=== PATIENT | male | born 1960 | race Caucasian/White ===

== ENCOUNTER 2017-03-04 22:47 | Inpatient (IN) | payer BC ==
--- NOTE | ~2017-03-04 | HP ---
History And Physical [address] [facility] [place]. [address] NAME: NAIDA BELLAMY : 64 STATUS : ADM Landen PAT#: [id number] AGE: 56 ADM/REG DATE : 03/04/17 MR#: [id number] REPORT SERV DATE: 03/05/17 DICTATED BY: LUCRECIA MOON DATE: 03/05/17 REPORT STATUS : Draft TRANSCRIBED BY: MODL DATE: 03/05/17 DATE OF ADMISSION: 03/04/2017 POINT OF ENTRY: Transferred from [facility]. CHIEF COMPLAINT: Chest pain. HISTORY OF PRESENT ILLNESS: Mr. Bellamy is a 56-year-old gentleman with a history of morbid obesity status post gastric bypass surgery as well as obstructive sleep apnea, on CPAP therapy, who presented to [facility] this evening with a report of acute onset of substernal chest pain described as pressure with associated diaphoresis. The patient states he was in his usual state of health until about 6:00 p.m. when he was at rest watching the match, subsequently he developed the acute onset of substernal chest pain described as pressure. He states it may have radiated to his left neck; however, he does admit that he was feeling very anxious with the onset of the chest pain. The patient does describe profuse diaphoresis at that time. He denied any nausea, shortness of breath, palpitations, or syncope. He initially rated this scale about 3 to 4/10 in severity. EMS was activated and he presented to the emergency department. Initial evaluation in the emergency department for EKG was nonischemic. Troponin was 0.04, of note, the cutoff value for [facility] is 0.044. He was given an inch of nitroglycerin paste, full-strength aspirin. After the inch of nitroglycerin paste the patient still had some chest pain, therefore he was given 2 mg of IV morphine with almost complete resolution of the chest pain. The patient was subsequently transferred to for higher level of care and per the patient's request. The patient denies any recent fevers, night sweats, chills, palpitations, cough, sputum production, shortness of breath, abdominal pain, nausea, vomiting, diarrhea, constipation, dysuria, lower extremity edema, melena, hematochezia, hemoptysis, or hematemesis. 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 He has not had a stress test or arteriogram in the past. He does exercise on an irregular basis, and actually exercised this morning. Comprehensive review of systems otherwise negative unless listed in history of present illness. PREVIOUS MEDICAL HISTORY: 1. Morbid obesity status post gastric bypass surgery. 2. Depression. 3. Obstructive sleep apnea, on CPAP therapy. 4. Previous history of hypertension and hyperlipidemia, no longer on treatment status post bypass. 5. Remote history of ischemic colitis. SURGICAL HISTORY: 1. Gastric bypass surgery. 2. Appendectomy. 3. Cholecystectomy. History And Physical [address] [address] NAME: NAIDA BELLAMY : 64 STATUS : ADM Landen PAT#: [id number] AGE: 56 ADM/REG DATE : 03/04/17 MR#: [id number] REPORT SERV DATE: 03/05/17 DICTATED BY: LUCRECIA MOON DATE: 03/05/17 REPORT STATUS : Draft TRANSCRIBED BY: ELIZABETH DATE: 03/05/17 4. Lipoma excision. ALLERGIES: TO NSAIDS. HOME MEDICATIONS: Effexor 75 mg daily. SOCIAL HISTORY: Denies any tobacco or illicits. He does state that he has drinking problem and has in the past three to four years ago where he drinks approximately four to eight glasses of wine nightly. Denies any history of alcohol withdrawal seizures, hallucinations, or delirium tremens. His last alcoholic drink was a few days ago. He is now currently ruled to an outpatient treatment program. FAMILY MEDICAL HISTORY: Mother with breast cancer and hypertension. Father is otherwise healthy. Siblings otherwise healthy. No significant family history of premature coronary artery disease notable. LABS AND IMAGING: All obtained from transfer records from [facility]: 1. White count 10.0, hemoglobin 13.9, hematocrit is 42.6, and platelet count is 259. INR 1.0. 2. Sodium is 145, potassium 4.6, chloride 101, carbon dioxide 30, BUN 25, creatinine 1.0, glucose is 140, calcium 9.0, protein 7.0, albumin is 3.8, bilirubin is 0.2, ALT is 44, AST 27, and alkaline phosphatase is 91. 3. Troponin is 0.4, on recheck here at [facility] his troponin now is 0.50 with a CPK of 124, CK MB of 2.3. 4. EKG per my review, obtained here at [facility] shows sinus bradycardia with heart rates in the high 50s with some LVH, but otherwise no evidence of any acute ischemia or infarction. 5. Chest x-ray per report from [facility] shows no acute cardiopulmonary abnormality. PHYSICAL EXAMINATION: VITAL SIGNS: Temperature is 98.0 degrees Fahrenheit, pulse is 60, respirations 19, saturating 99% on 2 L by nasal cannula, and blood pressure 113/58. GENERAL: The patient is awake and alert, in no acute distress. Resting comfortably in bed. He is a well-developed, well-nourished, male resting comfortably in bed. HEENT: Atraumatic and normocephalic. Moist mucous membranes. Pupils are equal, round, reactive to light and accommodation. Extraocular eye movements intact. No scleral icterus. NECK: No jugular venous distention. No carotid bruits. CARDIAC: Regular rate and rhythm. No murmurs, rubs, or gallops. Normal S1, S2. LUNGS: Clear to auscultation bilaterally. No wheezes, rhonchi, or crackles. ABDOMEN: Obese, soft, nontender, and nondistended. Good bowel sounds. No rebound, guarding, or rigidity. EXTREMITIES: Warm and well perfused. No cyanosis, clubbing, or edema. SKIN: Warm and dry. PSYCH: Affect appropriate. NEURO: Alert and oriented x3. Cranial nerves 2 through 12 grossly intact. Speech is normal. Gait not assessed. History And Physical [address] [address] NAME: NAIDA BELLAMY : 64 STATUS : ADM Landen PAT#: [id number] AGE: 56 ADM/REG DATE : 03/04/17 MR#: [id number] REPORT SERV DATE: 03/05/17 DICTATED BY: LUCRECIA MOON DATE: 03/05/17 REPORT STATUS : Draft TRANSCRIBED BY: ELIZABETH DATE: 03/05/17 MUSCULOSKELETAL: I am unable to reproduce any of the chest pain with palpation of the anterior or precordial chest. ASSESSMENT AND PLAN: Mr. Bellamy is a 56-year-old gentleman, who presents with the acute onset of substernal chest pain with diaphoresis and possible radiation that lasted approximately three to four hours, and now found to have an elevated troponin value concerning for non-ST elevation myocardial infarction. PROBLEM LIST: 1. Non-ST elevation myocardial infarction. 2. Alcohol abuse/alcohol dependence. 3. Morbid obesity status post gastric bypass surgery. 4. Obstructive sleep apnea, on CPAP therapy. PLAN: 1. Chest pain with non-ST elevation myocardial infarction. The patient admittedly does have very few cardiac risk factors at this time as he is a nonsmoker, has no identifiable family history. He does not have any evidence of diabetes or current treatment for hypertension or hyperlipidemia. But the patient does have a fairly classic story for possible ischemic chest pain as well as now a slowly rising troponin value. We will continue to treat him with full-strength aspirin. We will add on full- strength statin as well as continue the treatment for full-strength Lovenox of which he received the first dose at [facility]. Given his elevated troponin value we will consult Cardiology for assistance, keep the patient nothing by mouth pending possible stress test versus cardiac catheterization. Also check the hemoglobin A1c as well as fasting lipid panel. 2. Alcohol abuse. The patient admits to significant alcohol intake over the last three to four years, has not had any intake over the past few days. He currently has no evidence at this time of alcohol withdrawal, but we will place him on alcohol withdrawal protocol for continued monitoring. 3. DVT prophylaxis. Therapeutic Lovenox anticoagulation. CODE STATUS: The patient wished to be full code. JCB/MODL Lucrecia Moon MD / [id number] CC: Lito Swartz Jr, MD Rory Justo, MD
--- NOTE | ~2017-03-04 | DS ---
Discharge Summary [facility] [address] [facility] [place]. [address] NAME: NAIDA AKERS : 64 STATUS : DIS Landen PAT#: [id number] AGE: 56 ADM/REG DATE : 03/04/17 MR#: [id number] REPORT SERV DATE: 03/07/17 DICTATED BY: JR. SWARTZ WILLIAM JOHN DATE: 03/06/17 REPORT STATUS : Draft TRANSCRIBED BY: ELIZABETH DATE: 03/06/17 ADMISSION DATE: 03/04/2017 DISCHARGE DATE: 03/06/2017 DISCHARGE DIAGNOSES: Include: 1. [id number] myocardial infarction without culprit lesion identified on cardiac catheterization. 2. Alcohol abuse. 3. Morbid obesity, status post gastric bypass with body mass index of 32.1. 4. Obstructive sleep apnea, on CPAP. OPERATIONS/PROCEDURES AND TREATMENTS: Include cardiac catheterization done 03/06/2017, which showed no flow-limiting coronary artery disease with normal left ventricular end-diastolic filling pressure. Normal left ventricular systolic function. No culprit for chest pain or enzyme elevation. There is a right-sided dominance to the left main having the short vessel normal. Left anterior descending had a large caliber vessel 30-40% mid vessel stenosis. Large caliber trifurcation first diagonal vessel. Small inferior branch with 50% ostial stenosis. Left circumflex was large caliber dominant vessel with OM1 with diminutive OM2 with large caliber multibranching vessel which was normal circumflex traveled distally and posteriorly deforming medium caliber posterolateral branches and medium caliber long posterior descending artery which was normal. Right coronary is medium caliber with nondominant vessel supplying two ventricular branches and normal ramus with small caliber long vessel and normal. DISCHARGE MEDICATIONS: Include: 1. Venlafaxine 75 mg orally daily. 2. Lipitor 20 mg orally daily. 3. Metoprolol 12.5 mg orally twice a day. HOSPITAL COURSE: The patient is a 56-year-old male with a history of obesity status post gastric bypass in 2008, who developed abrupt substernal chest pressure with diaphoresis and shortness of breath one day prior to presentation. Symptoms lasted for 20 to 30 minutes, resolved by EMS with nitroglycerin. The patient initially went to [facility] where EKG shows sinus rhythm, LVH and old lateral infarct without acute ST change. Initial troponin was borderline at 0.04. He was transferred to [facility] for further care. He had no chest pain. Troponin trended up to 0.5. EKG remained unchanged. For exact details, please see the dictated history and physical. The patient was admitted to the Clinical Decision Unit. He was placed on heparin drip and was seen in consultation by Dr. Hang Clark, recommending a cardiac catheterization. The patient had a cardiac catheterization which showed noncritical coronary artery disease. He had a fasting lipid profile which showed normal LDL and HDL. He is discharged home on low- dose metoprolol and Lipitor. The patient will follow up with his primary care provider as well as Dr. Clark. DIET: Regular. Discharge Summary [address] [address] NAME: NAIDA AKERS : 64 STATUS : DIS Landen PAT#: [id number] AGE: 56 ADM/REG DATE : 03/04/17 MR#: [id number] REPORT SERV DATE: 03/07/17 DICTATED BY: JR. SWARTZ WILLIAM JOHN DATE: 03/06/17 REPORT STATUS : Draft TRANSCRIBED BY: ELIZABETH DATE: 03/06/17 ACTIVITY: As tolerated. This discharge took less than 30 minutes for patient encounter, coordination care and documentation. WNARENDRA/ELIZABETH Lito Swartz Jr, MD / [id number] CC: Lito Swartz Jr, MD
--- NOTE | ~2017-03-04 | CN ---
Consultation Report [facility] [address] [place]. [address] NAME: NAIDA AKERS : 64 STATUS : ADM Landen PAT#: [id number] AGE: 56 ADM/REG DATE : 03/04/17 MR#: [id number] REPORT SERV DATE: 03/05/17 DICTATED BY: HANG EMERSON DATE: 03/05/17 REPORT STATUS : Draft TRANSCRIBED BY: MODL DATE: 03/05/17 CARDIOLOGY CONSULTATION DATE OF CONSULTATION: 03/05/2017 REASON FOR CONSULTATION: Non-STEMI. 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 Symptoms lasted for 20 to 30 minutes before being resolved by EMS with nitroglycerin. He initially went to [facility] where his EKG showed sinus rhythm, LVH, and an old lateral infarct with no acute ST changes. Initial troponin was borderline at 0.04. He was transferred here for further care. He has had no further chest pain symptoms. Troponin has trended up to 0.5, and EKG remains unchanged. He is now resting comfortably. He has no preceding symptoms of exertional angina. He denies palpitations or syncope. He has no orthopnea/PND with the use of CPAP for obstructive sleep apnea. He has no edema. REVIEW OF SYSTEMS: Pertinent positives and negatives are as outlined above, all else negative. PAST MEDICAL HISTORY: 1. History of hypertension. 2. History of hyperlipidemia. 3. Obesity, status post gastric bypass surgery in 2008. 4. Obstructive sleep apnea, on CPAP. 5. Alcohol abuse. CURRENT MEDICATIONS: Effexor 75 mg daily. ALLERGIES: INCLUDE NO KNOWN DRUG ALLERGIES, LONG-TERM NONSTEROIDALS CONTRAINDICATED DUE TO HISTORY OF GASTRIC BYPASS SURGERY. 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 He does not use tobacco products. He consumes excess alcohol with four to eight drinks per day and is working on a cessation program. He does not use illegal drugs. FAMILY HISTORY: No significant family history of premature CAD, cardiomyopathy, or sudden . PHYSICAL EXAMINATION: VITAL SIGNS: Temperature is afebrile, pulse is 60, respirations 16, and blood pressure is 113/58. MENTAL STATUS: Awake, alert, and oriented x3. Consultation Report [place] [id number] [place]. [address] NAME: NAIDA AKERS : 64 STATUS : ADM Landen PAT#: [id number] AGE: 56 ADM/REG DATE : 03/04/17 MR#: [id number] REPORT SERV DATE: 03/05/17 DICTATED BY: HANG EMERSON DATE: 03/05/17 REPORT STATUS : Draft TRANSCRIBED BY: MODAna DATE: 03/05/17 PSYCH: Euthymic, normal affect. GENERAL: Well appearing and in no distress. HEENT: Sclerae anicteric, mucous membranes moist and without lesions. NECK: No jugular venous distention. No hepatojugular reflux, carotid upstrokes 2+ and symmetric, there are no carotid or subclavian bruit. LUNGS: Clear to auscultation without wheezes, crackles, or rales. CARDIOVASCULAR: Regular with normal S1 and S2, no murmurs, no S3 or S4, no parasternal lift, PMI is nondisplaced and nonsustained. ABDOMEN: Soft and nontender. Bowel sounds positive and normoactive. No hepatomegaly, no masses, no abdominal bruit. PULSES: Radial and dorsalis pedis pulses 2+ and symmetric. EXTREMITIES: Warm and without edema. SKIN: No clubbing or cyanosis, no rashes or lesions. ACCESSORY DATA: ECG shows sinus rhythm with LVH. Anterolateral Q-waves suggestive of an old lateral infarct. No acute ST changes. Troponin 0.05. Creatinine 0.9. Otherwise, normal electrolytes. Normal CBC. IMPRESSION: 1. [id number] myocardial infarction. 2. Abnormal ECG. 3. Hypertension. 4. Hyperlipidemia. 5. Obesity, status post gastric bypass surgery. 6. Obstructive sleep apnea. 7. Alcohol use/abuse. PLAN: Recommend statin and aspirin therapy, questionable retirement aspirin due to history of gastric bypass surgery. He has already see Lovenox which we will hold this morning in anticipation acute n.p.o. for cardiac catheterization and possible PCI today. Prescribed low-dose metoprolol 12.5 mg b.i.d. Further plan pending cardiac catheterization results. CONSENT: Risks and benefits of cardiac catheterization were discussed Mr. Lopez today. Risks including bleeding, infection, vascular access, trauma, allergic reaction to contrast dye, renal insufficiency, and a less than 1% chance of major complications such as heart attack and stroke were all covered. After this, informed consent was obtained and he agreed to proceed. LI/ELIZABETH Hang Emerson M.D. Consultation Report [address] [address] NAME: NAIDA AKERS : 64 STATUS : ADM Landen PAT#: [id number] AGE: 56 ADM/REG DATE : 03/04/17 MR#: [id number] REPORT SERV DATE: 03/05/17 DICTATED BY: HANG EMERSON DATE: 03/05/17 REPORT STATUS : Draft TRANSCRIBED BY: ELIZABETH DATE: 03/05/17 / [id number] CC: Lito Swartz Jr, MD
[~2017-03-04 22:47] MED LIST: EFFEX75 PO; L20 PO; ZESTRIL10 MG PO
[2017-03-05 00:17] LABS: CPK 124 U/L (0-200)
[2017-03-05 00:18] LABS: CK-MB 2.3 NG/ML
[2017-03-05 04:34] LABS: BASOPHILS 0.3 %; BASOPHILS ABSOLUTE 0.02 10/3/uL (0.0-0.16); EOSINOPHILS 2.6 %; EOSINOPHILS ABSOLUTE 0.17 10/3/uL (0.0-0.53); HEMOGLOBIN 12.8 g/dL (13.6-17.8); IMMATURE GRANULOCYTES 0.3 %; IMMATURE GRANULOCYTES ABSOLUTE 0.02 10/3/uL (0.0-0.11); LYMPHOCYTES 30.2 %; LYMPHOCYTES ABSOLUTE 1.96 10/3/uL (0.67-4.30); MEAN CORPUS HGB CONC 33.7 g/dL (32.0-36.0); MEAN CORPUSCULAR HEMOGLOB 31.4 pg (26.0-34.0); MEAN CORPUSCULAR VOLUME 93.1 fL (80-100); MEAN PLATELET VOLUME 10.3 fL (9.2-13.0); MONOCYTES 9.2 %; NEUTROPHILS 57.4 %; NEUTROPHILS ABSOLUTE 3.73 10/3/uL (2.02-8.40); PLATELET COUNT 229 10/3/uL (150-400); RBC DISTRIBUTION WIDTH 13.7 % (12.0-16.0); RED CELL COUNT 4.08 10/6/uL (4.7-6.1); WHITE BLOOD CELLS 6.5 10/3/uL (4.5-10.5)
[2017-03-05 04:42] LABS: MANUAL DIFF NO %
[2017-03-05 04:48] LABS: CHLORIDE, SERUM 108 MMOL/L (96-112); CHOL/HDL RATIO(NOT ORDER) 2.1 (0-5); CHOLESTEROL 133 MG/DL (< 200); CO2 (CARBON DIOXIDE) 28 MMOL/L (24-34); CPK 114 U/L (0-200); CREATININE 0.74 MG/DL (0.70-1.30); GFR AFRICAN AMERICAN 121 ML/MIN (>=60); GFR NON AFRICAN AMERICAN 105 ML/MIN (>=60); GLUCOSE, SERUM 87 MG/DL (60-99); HDL CHOLESTEROL 63 MG/DL (> 39); LDL CHOLESTEROL 54 MG/DL (< 130); NON-HDL CHOLESTEROL 70 MG/DL (< 160); POTASSIUM, SERUM 3.6 MMOL/L (3.5-5.3); SODIUM, SERUM 146 MMOL/L (135-148); TRIGLYCERIDE 80 MG/DL (< 150)
[2017-03-05 04:50] LABS: BUN (BLOOD UREA NITROGEN) 22 MG/DL (6-23); CALCIUM, SERUM 7.8 MG/DL (8.5-10.4); CK-MB 2.4 NG/ML; TROPONIN I 0.38 NG/ML (<0.05)
[2017-03-05 07:15] LABS: TROPONIN I 0.35 NG/ML (<0.05)
[2017-03-05 10:24] LABS: BASOPHILS 0.3 %; BASOPHILS ABSOLUTE 0.02 10/3/uL (0.0-0.16); EOSINOPHILS 2.3 %; EOSINOPHILS ABSOLUTE 0.18 10/3/uL (0.0-0.53); HEMOGLOBIN 12.7 g/dL (13.6-17.8); IMMATURE GRANULOCYTES 0.3 %; IMMATURE GRANULOCYTES ABSOLUTE 0.02 10/3/uL (0.0-0.11); LYMPHOCYTES 23.9 %; LYMPHOCYTES ABSOLUTE 1.87 10/3/uL (0.67-4.30); MEAN CORPUS HGB CONC 33.4 g/dL (32.0-36.0); MEAN CORPUSCULAR HEMOGLOB 31.3 pg (26.0-34.0); MEAN CORPUSCULAR VOLUME 93.6 fL (80-100); MEAN PLATELET VOLUME 10.6 fL (9.2-13.0); MONOCYTES 10.1 %; MONOCYTES ABSOLUTE 0.79 10/3/uL (0.21-1.20); NEUTROPHILS 63.1 %; NEUTROPHILS ABSOLUTE 4.95 10/3/uL (2.02-8.40); PLATELET COUNT 224 10/3/uL (150-400); RBC DISTRIBUTION WIDTH 13.9 % (12.0-16.0); RED CELL COUNT 4.06 10/6/uL (4.7-6.1); WHITE BLOOD CELLS 7.8 10/3/uL (4.5-10.5)
[2017-03-05 10:26] LABS: MANUAL DIFF NO %
[2017-03-05 10:39] LABS: BUN (BLOOD UREA NITROGEN) 21 MG/DL (6-23); CALCIUM, SERUM 8.2 MG/DL (8.5-10.4); CHLORIDE, SERUM 107 MMOL/L (96-112); CHOL/HDL RATIO(NOT ORDER) 2.1 (0-5); CHOLESTEROL 132 MG/DL (< 200); CO2 (CARBON DIOXIDE) 29 MMOL/L (24-34); CREATININE 0.85 MG/DL (0.70-1.30); GFR AFRICAN AMERICAN 114 ML/MIN (>=60); GFR NON AFRICAN AMERICAN 99 ML/MIN (>=60); GLUCOSE, SERUM 86 MG/DL (60-99); HDL CHOLESTEROL 63 MG/DL (> 39); LDL CHOLESTEROL 51 MG/DL (< 130); NON-HDL CHOLESTEROL 69 MG/DL (< 160); POTASSIUM, SERUM 3.8 MMOL/L (3.5-5.3); SODIUM, SERUM 145 MMOL/L (135-148); TRIGLYCERIDE 90 MG/DL (< 150)
[2017-03-05 10:46] LABS: INTERNATIONAL NORMAL RATI 1.2 UNITS (-); PROTIME (NOT ORD) 15.1 SEC (12.0-14.5)
[2017-03-06 04:47] LABS: BASOPHILS 0.4 %; BASOPHILS ABSOLUTE 0.02 10/3/uL (0.0-0.16); EOSINOPHILS 3.2 %; EOSINOPHILS ABSOLUTE 0.17 10/3/uL (0.0-0.53); HEMOGLOBIN 14.3 g/dL (13.6-17.8); IMMATURE GRANULOCYTES 0.4 %; IMMATURE GRANULOCYTES ABSOLUTE 0.02 10/3/uL (0.0-0.11); LYMPHOCYTES 31.5 %; LYMPHOCYTES ABSOLUTE 1.67 10/3/uL (0.67-4.30); MEAN CORPUS HGB CONC 34.1 g/dL (32.0-36.0); MEAN CORPUSCULAR HEMOGLOB 31.8 pg (26.0-34.0); MEAN CORPUSCULAR VOLUME 93.3 fL (80-100); MEAN PLATELET VOLUME 10.8 fL (9.2-13.0); MONOCYTES 10.2 %; MONOCYTES ABSOLUTE 0.54 10/3/uL (0.21-1.20); NEUTROPHILS 54.3 %; NEUTROPHILS ABSOLUTE 2.88 10/3/uL (2.02-8.40); PLATELET COUNT 221 10/3/uL (150-400); RBC DISTRIBUTION WIDTH 13.7 % (12.0-16.0); RED CELL COUNT 4.49 10/6/uL (4.7-6.1); WHITE BLOOD CELLS 5.3 10/3/uL (4.5-10.5)
[2017-03-06 04:49] LABS: HEMATOCRIT 41.9 % (40.0-51.0); MANUAL DIFF NO %
[2017-03-06 05:03] LABS: BUN (BLOOD UREA NITROGEN) 15 MG/DL (6-23); CALCIUM, SERUM 8.2 MG/DL (8.5-10.4); CHLORIDE, SERUM 110 MMOL/L (96-112); CHOL/HDL RATIO(NOT ORDER) 1.8 (0-5); CHOLESTEROL 128 MG/DL (< 200); CO2 (CARBON DIOXIDE) 28 MMOL/L (24-34); CREATININE 0.81 MG/DL (0.70-1.30); GFR AFRICAN AMERICAN 117 ML/MIN (>=60); GFR NON AFRICAN AMERICAN 101 ML/MIN (>=60); GLUCOSE, SERUM 93 MG/DL (60-99); HDL CHOLESTEROL 70 MG/DL (> 39); LDL CHOLESTEROL 45 MG/DL (< 130); NON-HDL CHOLESTEROL 58 MG/DL (< 160); POTASSIUM, SERUM 4.3 MMOL/L (3.5-5.3); SODIUM, SERUM 145 MMOL/L (135-148); TRIGLYCERIDE 66 MG/DL (< 150)
[2017-03-06] MEDS ORDERED: LIPITOR20 PO (16:48)
[2017-03-06] MEDS ORDERED: LOP25 PO (16:49)
== END 2017-03-06 17:22 | disposition home or self-care (01) | DRG 282 ==
LOC: CDU2 22:47
PROVIDERS: Internal Medicine; Internal Medicine Cardiovascular Disease
PROC: B2151ZZ Fluoroscopy of Left Heart using Low Osmolar Contrast (ICD-10-PCS; principal; 2017-03-06)
PROC: B2111ZZ Fluoroscopy of Multiple Coronary Arteries using Low Osmolar Contrast (ICD-10-PCS; principal; 2017-03-06)
PROC: 4A023N7 Measurement of Cardiac Sampling and Pressure, Left Heart, Percutaneous Approach (ICD-10-PCS; principal; 2017-03-06)
DX: I21.4 Non-ST elevation (NSTEMI) myocardial infarction (principal); E66.01 Morbid (severe) obesity due to excess calories; I25.119 Atherosclerotic heart disease of native coronary artery with unspecified angina pectoris; Z68.32 Body mass index [BMI] 32.0-32.9, adult; F10.10 Alcohol abuse, uncomplicated; G47.33 Obstructive sleep apnea (adult) (pediatric); Z98.84 Bariatric surgery status; Z88.8 Allergy status to other drugs, medicaments and biological substances; Z87.891 Personal history of nicotine dependence
CPT/HCPCS: 80048; 80061; 82550; 82553; 83036; 84484; 85025; 85610; 93005; 93458; 96372; 99152; 99153; A9270-GY; C1769; C1887; C1894; G0378; J2250; J3010; Q9967